=== PATIENT | male | born 1950 | race Caucasian/White ===

== ENCOUNTER 2017-08-23 07:57 | Day surgery (SDC) | payer BC ==
[2017-08-18 14:27] VITALS: BMI 23.6
--- NOTE | 2017-08-22 13:55 | HP ---
HISTORY AND PHYSICAL DATE OF SERVICE: 08/23/2017 Donny Gonzalez is a 66-year-old patient seen with progressive right shoulder pain. After treatment options were discussed with him, he elected to proceed with right shoulder arthroscopy. Consent was obtained. Medical clearance was prior to Dr. Kenny. PAST MEDICAL HISTORY: Gastroesophageal reflux disease. . PAST SURGICAL HISTORY: Noncontributory. DAILY MEDICATIONS: 1. Omeprazole. 2. Ibuprofen. ALLERGIES: None reported. SOCIAL HISTORY: Currently smokes cigarettes. PHYSICAL EVALUATION RIGHT SHOULDER: Flexion is 170 degrees, abduction is 160 degrees, external rotation is 50 degrees with pain and weakness. There is tenderness along the anterolateral acromion and rotator cuff insertion site. Impingement is positive at 70 degrees. Drop-arm sign is positive. Distal neurovascular exam is intact. RADIOGRAPHS: Right shoulder revealed a type 2 anterior acromion. Cystic changes of the tuberosity and acromioclavicular joint osteoarthritis. MRI of the right shoulder revealed a retracted rotator cuff tendon tear. IMPRESSION: Right shoulder impingement with rotator cuff tear and acromioclavicular joint osteoarthritis. PLAN: Right shoulder arthroscopy with subacromial decompression, probable arthroscopic rotator cuff repair. Possible Robbi procedure and debridement. MMODL / IJN: [id number] /
[~2017-08-23 07:57] MED LIST: DEXAMETHASONE SOD PHOSPHATE 10 MG/ML 1 ML VIAL IV ONE; HYDROmorphone 0.5 MG/0.5 ML SYRINGE IVP PRN; LACTATED RINGERS 1,000 ML IV SCH; LIDOCAINE 1% 20 ML VIAL (10MG/ML) FOR IV START INTRADERMA PRN; MIDAZOLAM 2 MG/2 ML VIAL IV PRN; ONDANSETRON 4 MG/2 ML VIAL IVP ONE; SCOPOLAMINE 1.5MG/72HR PATCH TRANSDERM ONE; ceFAZolin 2 GM in SODIUM CHLORIDE 0.9% 100 ML IVPB ONE
[2017-08-23] MEDS ORDERED: MIDAZOLAM 2 MG/2 ML VIAL ONE (09:30)
[2017-08-23] MEDS ORDERED: ePHEDrine SULFATE/0.9% NACL/PF 50 MG/5 ML SYRINGE IV ONE (09:30)
[2017-08-23] MEDS ORDERED: NEOSTIGMINE 1 MG/ML 10 ML VIAL ONE (09:30)
[2017-08-23] MEDS ORDERED: SUCCINYLCHOLINE CHLORIDE 100 MG/5 ML SYR IV ONE (09:30)
[2017-08-23] MEDS ORDERED: PROPOFOL 10 MG/ML 20 ML VIAL IV ONE (09:30)
[2017-08-23] MEDS ORDERED: KETOROLAC 30 MG/ML 1 ML VIAL ONE (09:30)
[2017-08-23] MEDS ORDERED: GLYCOPYRROLATE 0.2 MG/ML 2 ML VIAL ONE (09:30)
[2017-08-23] MEDS ORDERED: ONDANSETRON 4 MG/2 ML VIAL ONE (09:30)
[2017-08-23] MEDS ORDERED: PHENYLEPHRINE-0.9% NACL SYG 1 MG/10 ML SYRINGE ONE (09:30)
[2017-08-23] MEDS ORDERED: fentaNYL (PF) 50 MCG/ML 2 ML AMP ONE (09:30)
[2017-08-23] MEDS ORDERED: ROCURONIUM BROMIDE 10 MG/ML 10 ML VIAL IV ONE (09:30)
[2017-08-23] MEDS ORDERED: LACTATED RINGERS 1,000 ML IV ONE (11:21)
--- NOTE | 2017-08-23 11:44 | P.OP ---
Date of Procedure: 08/23/17 Preoperative Diagnosis: Right shoulder impingement Postoperative Diagnosis: 1. Right shoulder rotator cuff tear 2. Right shoulder impingement 3. Right shoulder acromioclavicular joint osteoarthritis 4. Right shoulder partial biceps tendon tear 5. Right shoulder labral tear 6. Right shoulder glenoid chondromalacia Procedure(s) Performed: 1. Right shoulder arthroscopic rotator cuff repair 2. Right shoulder arthroscopic subacromial decompression 3. Right shoulder arthroscopic Robbi procedure 4. Right shoulder arthroscopic biceps tenotomy 5. Right shoulder arthroscopic debridement labral tear 6. Right shoulder arthroscopic chondroplasty glenoid Implants: 5-peek anchors Anesthesia: GETA, regional (Interscalene block) Surgeon: Dangelo Bender Community Manager #1: Angel Singh Estimated Blood Loss (ml): 10 Pathology: none sent Condition: stable Disposition: PACU Indications for Procedure: 66-year-old patient seen with progressive right shoulder pain. After treatment options were discussed, he elected to proceed with arthroscopy. Operative Findings: See description of procedure Description of Procedure: Patient underwent a shoulder block by department of anesthesia. The patient was then taken to the operative suite. The patient underwent a general anesthetic by the department of anesthesia. The patient was placed into a lateral position and secured. There was appropriate padding of the bony prominence. Right shoulder was then prepped and draped in normal sterile orthopedic fashion. We placed the extremity in 10 pounds of longitudinal traction. A posterior incision was now made for a posterior working portal site. The trocar and cannula were inserted into the glenohumeral joint. Arthroscopy was initiated. Spinal needle was now inserted anteriorly, to ascertain the anterior working portal site. An incision was now made in that area, a trocar was inserted followed by a probe. There was superficial tearing of the anterior labrum. There was partial tearing long head biceps tendon and hyperemia. There were grade 1 chondromalacia changes of the glenoid with some small osteochondral tears present. The posterior, inferior labrum were intact. No loose bodies were identified. I debrided the superficial labral tears down to stable tissue. I performed a chondroplasty of the glenoid down to stable osteochondral tissue. I performed an arthroscopic biceps tenotomy. The residual labrum was found to be stable. Instruments were now removed from the glenohumeral joint. Utilizing the posterior working portal site, the trocar and cannula were inserted into the subacromial space. Arthroscopy initiated. I made an incision 2 fingerbreadths lateral to the acromion. I introduced my trocar followed by my [employer] ablator. I now began ablating thick subacromial bursal tissue, which exposed the undersurface of the anterior acromion. This was diminished subacromial space. There was a very prominent anterior acromion. A motorized bur was introduced and a subacromial decompression was performed. I also excised some osteophytes off the inferior aspect of the distal clavicle. The AC joint was visualized and noted to be fairly arthritic. Our motorized bur was introduced in the anterior portal site and a Robbi procedure was performed without difficulty, decompressing the AC joint nicely. I turned my attention to the rotator cuff. There was a large 2.5 cm-3 cm. rotator cuff tear. There was some delamination noted. It was retracted. After some work with soft tissue release I was able to get over the footprint. I debrided the margins down to stable tissue. I abraded the footprint with a motorized bur. I created an warehouse material handler portal site off the lateral acromion. I introduced 2 medial row anchors with 2 sutures each. I passed all 8 limbs of suture through good bites of rotator cuff tendon. I passed an anterior and posterior Loop stitch. I now crisscrossed the sutures and introduced 2 lateral anchors compressing the tendon along the footprint nicely. The suture limbs were clipped. I did note a central dog ear. I passed an additional Loop stitch and one additional lateral anchor compressing that down. The suture limbs clipped. The repair was probed and found to be stable. I injected 1 mL Allogen intra-articular. Instruments were now removed from the portal sites. All portal sites were approximated with nylon suture. Sterile dressings were applied followed by a shoulder immobilizer. Vinicio MORROW assisted with the procedure. The patient was awakened, transferred to a bed, and taken to recovery in stable condition.
[2017-08-23 11:55] VITALS: TEMP 97
[2017-08-23 12:36] VITALS: RESP 18
[2017-08-23 12:48] VITALS: BP 123/78; PULSE 64
== END 2017-08-23 13:10 | disposition home or self-care (01) ==
LOC: OR 07:57
PROVIDERS: ATTEND Orthopaedic Surgery
DX: M75.101 Unspecified rotator cuff tear or rupture of right shoulder, not specified as traumatic (principal); S46.111A Strain of muscle, fascia and tendon of long head of biceps, right arm, initial encounter; M94.211 Chondromalacia, right shoulder; M25.711 Osteophyte, right shoulder; S43.491A Other sprain of right shoulder joint, initial encounter; M19.011 Primary osteoarthritis, right shoulder; F17.210 Nicotine dependence, cigarettes, uncomplicated; K21.9 Gastro-esophageal reflux disease without esophagitis; Z79.899 Other long term (current) drug therapy; X58.XXXA Exposure to other specified factors, initial encounter
CPT/HCPCS: 29827; 29826; 29824; 64415; 84132; C1713 ×2; C1765; J2250; J1100; J2710; J0690; J2405; J3010; J1885; J2370; J0330; J2704